=== PATIENT | female | born 2000 | race African-American/Black ===

== ENCOUNTER 2023-08-27 08:04 | Emergency (ER) | payer BC, SELFPAY ==
--- NOTE | ~2023-08-27 | CT_ITS ---
EXAMINATION: CT cervical spine wo con DATE: 08/27/2023 09:42 INDICATION: Neck pain 2 days post 13 foot fall TECHNIQUE: Computed tomography (CT) of the cervical spine was performed without intravenous contrast. Automated exposure control and iterative reconstruction technique were employed. The dose-length pro duct was 381.51 mGy-cm. COMPARISON: None FINDINGS: Likely positional reversal of the normal cervical lordosis. No spondylolisthesis or facet subluxation . Vertebral body and disc heights are normal. No fracture. No central canal or neural foraminal steno sis. Cervical soft tissues are unremarkable. Visualized apices of lungs are clear. IMPRESSION: 1. Likely positional reversal of the normal cervical lordosis. Otherwise normal cervical spine CT. Reviewed, dictated and finalized at location A.
--- NOTE | ~2023-08-27 | CT_ITS ---
EXAMINATION: CT lumbar spine wo con DATE: 08/27/2023 09:41 INDICATION: Low back pain post 13 foot fall 2 days prior TECHNIQUE: Computed tomography (CT) of the lumbar spine was performed without intravenous contrast. A utomated exposure control and iterative reconstruction technique were employed. The dose-length produ ct was 1244.28 mGy-cm. COMPARISON: None FINDINGS: 6 degree thoracolumbar dextrocurvature. Sagittal alignment is normal. Vertebral body and disc heights are normal. Mild disc bulges at L3-L4 and L4-L5 and small central disc protrusion at L5-S1 without c entral canal stenosis. There is minimal to mild lumbar and lower thoracic facet osteoarthritis. No ne ural foraminal stenosis. Mild bilateral sacroiliac osteoarthritis with mild osteitis condense and layton iac. Paravertebral soft tissues are unremarkable. IMPRESSION: 1. 6 degrees thoracolumbar dextrocurvature and minimal lumbar spondylosis. No acute osseous abnormali ty. Reviewed, dictated and finalized at location A. IMPRESSION: 1. 6 degrees thoracolumbar dextrocurvature and minimal lumbar spondylosis. No a cute osseous abnormality.
--- NOTE | ~2023-08-27 | CT_ITS ---
EXAMINATION: CT thoracic spine wo con DATE: 08/27/2023 09:41 INDICATION: Upper back pain 2 days post 13 foot fall onto the back. TECHNIQUE: Computed tomography (CT) of the thoracic spine was performed without intravenous contrast. Automated exposure control and iterative reconstruction technique were employed. The dose-length pro duct was 1261.92 mGy-cm. COMPARISON: None FINDINGS: Minimal thoracic dextrocurvature. Sagittal alignment is normal. Vertebral body heights are normal. No fracture. Mild disc height loss at T4-T5 and T5-T6. No central canal stenosis. There is multilevel m ild central cartilage is almost there is multilevel minimal to mild thoracic facet osteoarthritis. No neural foraminal stenosis. Visualized portion of the lungs are clear. Paravertebral soft tissues are unremarkable. IMPRESSION: 1. Minimal thoracic dextrocurvature and minimal spondylosis. No acute osseous abnormality. Reviewed, dictated and finalized at location A. IMPRESSION: 1. Minimal thoracic dextrocurvature and minimal spondylosis. No acute osseous a bnormality.
[2023-08-27 08:06] VITALS: BP 124/90; PULSE 88; RESP 20; TEMP 36.4; O2SAT 100
--- NOTE | 2023-08-27 08:10 | ED.BACK ---
HPI - Back Pain/Injury General Chief Complaint: Back Pain/Injury Stated Complaint: back pain Time Seen by Provider: 08/27/23 08:10 History of Present Illness HPI Narrative: 23-year-old female patient was otherwise healthy is here with complaints of back pain for the last 2 days after she fell off of the truck while trying to check the battery on the vehicle. 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 She states that the she fell from 13 ft height. Did not strike her head. Did experience pain immediately. Patient states that she tried to call her workplace and she was advised to continue going to [employer]. She has since been taken Tylenol with Aleve every 8 hours without much relief. She localizes the pain to the entire back and states that moving and walking and bending worsens the pain. She denies any numbness or tingling to the lower extremities. Patient denies any loss of bladder or bowel control.She denies any trouble breathing. Patient states that she has had frequent urination without any burning sensation. Denies any abdominal pain. Related Data Allergies Allergy/AdvReac Type Severity Reaction Status Date / Time No Known Allergies Allergy Verified 08/27/23 08:06 Review of Systems Review of Systems: All systems reviewed & are unremarkable except as noted in HPI and below Exam Narrative: Alert female patient who appears in [id number] discomfort but no acute distress. Vital signs are stable. HEENT is normal. Neck is supple. There is no tenderness in the midline. There are no distracting injuries. Patient has minimal tenderness in bilateral paracervical areas. Spine has a normal curvature. Patient is tender from cervical spine down to the sacral spine . A small abrasion is noted in the lower midthoracic spine which appears more like a bruise. There is tenderness in the para spinal area bilaterally. Patient does move around with a little bit of guarding. Lungs are clear to auscultation. Heart tones are regular. Abdomen is soft and nontender. Skin is warm and dry skin turgor is normal. Neurologic examination is normal with regards to patient being alert and oriented x4. Speech is normal. Gait is steady. Motor and sensory is intact. Mood and affect are normal. Course Course Emergency Course: Patient was given ketorolac 60 mg IM which has not really given her much relief. Her diagnostic workup included CT scans of cervical spine thoracic spine in the lumbar spine and they were negative for any fracture of vertebrae. Urinalysis is negative. the patient is aware of the diagnostic workup. She is also aware of the discharge plans. I have discussed muscle strain in the back muscles with the patient and will prescribe her Tylenol 650 3 times a day, ibuprofen 600 mg 3 times a day and Robaxin 750 mg 3 times a day for day 1 and then at bedtime only. I have also recommended the patient that she take a day off from driving and will provide her with a work note. Vital Signs Vital signs: Vital Signs Temperature 36.4 C L 08/27/23 08:06 Pulse Rate 88 08/27/23 08:06 Respiratory Rate 20 08/27/23 08:06 Blood Pressure 124/90 08/27/23 08:06 Pulse Oximetry 100 08/27/23 08:06 Oxygen Delivery Room Air 08/27/23 08:06 Temperature 36.4 C L 08/27/23 08:06 Pulse Rate 88 08/27/23 08:06 Respiratory Rate 20 08/27/23 08:06 Blood Pressure 124/90 08/27/23 08:06 Pulse Oximetry 100 08/27/23 08:06 Oxygen Delivery Room Air 08/27/23 08:06 MDM - Back Pain/Injury MDM Narrative Medical decision making narrative: Back pain post fall from 30 ft height. Cervical spine thoracolumbar spine CTs are negative. Urinalysis is negative. The patien
[2023-08-27] MEDS: KETOROLAC (*BKC) 60 MG/2 ML VIAL IM (08:36)
[2023-08-27 09:01] LABS: Appearance Urine Clear (Clear); Bilirubin Urine Negative (Negative); Blood Urine Trace-intact (Negative); Color Urine Light Yellow (Yellow); Glucose Urine UA Negative (Negative); Ketones Urine Negative (Negative); Leukocyte Esterase Ur Negative (Negative); Nitrate Urine Negative (Negative); Protein Urine Negative (Negative); Urobilinogen Urine 0.2 mg/dL (0.2-1.0)
[2023-08-27 09:09] LABS: Add Urine Microscopic? YES; RBC Urine None seen /hpf (0-2)
[2023-08-27 09:10] LABS: Pregnancy On Board Control Positive; Urine Pregnancy Test Negative
[2023-08-27 10:00] VITALS: BP 121/68; PULSE 77; RESP 16; TEMP 36.9; O2SAT 99
== END 2023-08-27 11:18 | disposition home or self-care (01) ==
PROVIDERS: Emergency Provider Emergency Medicine
DX: S39.012A Strain of muscle, fascia and tendon of lower back, initial encounter (principal); W17.89XA Other fall from one level to another, initial encounter
CPT/HCPCS: 72125; 72128; 72131; 81001; 81025; 96372; 99284; J1885